=== PATIENT | female | born 1955 | race Caucasian/White ===

== ENCOUNTER 2023-10-02 05:55 | Day surgery (SDC) | payer MEDICARE, MEDICAID ==
[2023-10-02] VITALS (13 sets, daily range): BP systolic 130–179; BP diastolic 77–114; PULSE 75–89; RESP 13–17; TEMP 96.8; O2SAT 94–99
[~2023-10-02] VITALS: Ht 162.6 cm; Wt 115.7 kg
[2023-10-02] MEDS: tranexamic acid inj. 1,000 MG in normal saline IV soln 100ML IV ONE (05:50)
[2023-10-02] MEDS: cefazolin 2gm/D5W 100mL 100 ML IV ONE (05:50)
[~2023-10-02 05:55] MED LIST: LISI10TA27 PO; ringers solution, lacted 1,000 ML IV SCH
[2023-10-02] MEDS: oxymetazoline 15 ML nasal spray NS ONE ×2 (06:25→15:36)
[2023-10-02] MEDS: famotidine 20mg tablet PO ONE (06:25)
[2023-10-02] MEDS ORDERED: LIDOcaine 1% W/epiNEPHrine 1:100,000 20ml vial ONE (06:47)
[2023-10-02] MEDS ORDERED: fentaNYL /PF 50mcg/ml 5ml ampule ONE (07:50)
[2023-10-02] MEDS ORDERED: sevoflurane 250ml liquid IH ONE (08:07)
[2023-10-02] MEDS ORDERED: sugammadex 200mg/2ml injection IV ONE (10:07)
[2023-10-02] MEDS ORDERED: fentaNYL/PF 50MCG/1 ML 2ML syringe IV PRN (10:35)
[2023-10-02] MEDS ORDERED: ondansetron/PF 4mg/2ml inj IV PRN (10:35)
[2023-10-02] MEDS ORDERED: meperidine/PF 25mg/ml syringe IV PRN (10:35)
[2023-10-02] MEDS ORDERED: HYDROmorphone/PF 0.2 MG/ML SYRINGE IV PRN (10:35)
[2023-10-02] MEDS ORDERED: ringers solution, lacted 1,000 ML IV SCH (10:35)
[2023-10-02] MEDS ORDERED: proCHLORperazine 10 MG/2 ml inj IV PRN (10:35)
[2023-10-02] MEDS: labetalol 20mg/4ml (5mg/ml) syringe IV PRN (10:43)
[2023-10-02] MEDS: mupirocin 2% nasal ointment 1gm UD NS ONE (11:16)
[2023-10-02] MEDS: salt irrigation nasal spray 45 ML SPRAY NS ONE (11:16)
[2023-10-02] MEDS: hydrALAZINE 20mg/ml inj. IV PRN (11:18)
[2023-10-02] MEDS: cocaine 4% topical solution 4ml bottle ONE (15:35)
[2023-10-02] MEDS: epiNEPHrine 1 mg/ml 30ml MDV ONE (15:35)
[2023-10-02] MEDS: mupirocin 2% ointment 22GM ONE (15:36)
[2023-10-02] MEDS: Thrombin (Bovine) 5,000 unit vial TP ONE (15:36)
== END 2023-10-02 12:11 | disposition home or self-care (01) ==
LOC: PAS 05:55
PROVIDERS: ATTEND Otolaryngology
DX: J34.2 Deviated nasal septum (principal); J34.3 Hypertrophy of nasal turbinates; J32.9 Chronic sinusitis, unspecified; I10 Essential (primary) hypertension; I25.10 Atherosclerotic heart disease of native coronary artery without angina pectoris; E66.9 Obesity, unspecified; G47.30 Sleep apnea, unspecified; F41.9 Anxiety disorder, unspecified; F32.A Depression, unspecified; F43.10 Post-traumatic stress disorder, unspecified; Z79.899 Other long term (current) drug therapy; Z90.89 Acquired absence of other organs; Z90.710 Acquired absence of both cervix and uterus; Z96.642 Presence of left artificial hip joint; Z98.891 History of uterine scar from previous surgery; Z98.890 Other specified postprocedural states; Z68.41 Body mass index [BMI] 40.0-44.9, adult; Z91.040 Latex allergy status
CPT/HCPCS: 30140; 30520; 31240; 31254; 31267; 61782; 82948; 93005; A4618; A6402; A7000; J0171; J0360; J0690; J1100; J2001; J2405; J2704; J2765; J3010; J3490; J7030; J7050; J7120; Z7506; Z7508; Z7512; Z7610; 88300; 88304; 88311; A6449; C9250

== ENCOUNTER 2023-11-13 06:03 | Day surgery (SDC) | payer MEDICARE, MEDICAID ==
[2023-11-13] VITALS (16 sets, daily range): BP systolic 153–195; BP diastolic 92–112; PULSE 76–89; RESP 11–18; TEMP 98.4; O2SAT 94–100
[~2023-11-13] VITALS: Ht 162.6 cm; Wt 116.0 kg
[2023-11-13] MEDS: cefazolin 2gm/D5W 100mL 100 ML IV ONE (06:09)
[2023-11-13] MEDS: tranexamic acid inj. 1,000 MG in normal saline IV soln 100ML IV ONE (06:09)
[2023-11-13] MEDS: famotidine 20mg tablet PO ONE (06:54)
[2023-11-13] MEDS: oxymetazoline 15 ML nasal spray NS ONE (06:54)
[2023-11-13] MEDS ORDERED: epiNEPHrine 1 mg/ml 30ml MDV ONE (06:59)
[2023-11-13] MEDS ORDERED: cocaine 4% topical solution 4ml bottle ONE (06:59)
[2023-11-13] MEDS ORDERED: methylPREDNISolone acetate 80mg/ml inj**IM only ONE (06:59)
[2023-11-13] MEDS ORDERED: mupirocin 2% ointment 22GM ONE (07:00)
[2023-11-13] MEDS ORDERED: LIDOcaine 1% w/EPI 1:100,000 inj. MDV 50 ML VIAL ONE (07:00)
[2023-11-13] MEDS ORDERED: oxymetazoline 15 ML nasal spray NS ONE (07:01)
[2023-11-13] MEDS ORDERED: Thrombin (Bovine) 5,000 unit vial TP ONE ×2 (07:01→10:10)
[2023-11-13] MEDS ORDERED: fentaNYL/PF 50MCG/1 ML 2ML syringe ONE (07:49)
[2023-11-13] MEDS ORDERED: midazolam 1 mg/ML 2ml injection ONE (07:49)
[2023-11-13] MEDS ORDERED: propofol inj 20 ML IV ONE (07:50)
[2023-11-13] MEDS ORDERED: ondansetron/PF 4mg/2ml inj ONE (07:50)
[2023-11-13] MEDS ORDERED: LIDOcaine 2% (20mg/ml) 5ml vial ONE (07:50)
[2023-11-13] MEDS ORDERED: dexamethasone sod phosphate 4mg/ml inj. ONE ×2 (07:50→09:35)
[2023-11-13] MEDS ORDERED: rocuronium 10mg/ml inj IV ONE (07:50)
[2023-11-13] MEDS ORDERED: acetaminophen 1,000mg/100ml IV 100 ML IV ONE (07:50)
[2023-11-13] MEDS ORDERED: ondansetron/PF 4mg/2ml inj IV PRN (07:55)
[2023-11-13] MEDS ORDERED: ringers solution, lacted 1,000 ML IV SCH (07:55)
[2023-11-13] MEDS ORDERED: sevoflurane 250ml liquid IH ONE (08:18)
[2023-11-13] MEDS ORDERED: labetalol 20mg/4ml (5mg/ml) syringe IV ONE (08:39)
[2023-11-13] MEDS ORDERED: ePHEDrine 50MG/ML INJ. ONE (09:12)
[2023-11-13] MEDS: morphine 4 MG/ML inj SYRINge IV PRN (10:42)
[2023-11-13] MEDS: labetalol 20mg/4ml (5mg/ml) syringe IV PRN (10:47)
[2023-11-13] MEDS ORDERED: salt irrigation nasal spray 45 ML SPRAY NS PRN (11:10)
[2023-11-13] MEDS: morphine 2 MG/ML inj. syringe IV PRN (11:12)
[2023-11-13] MEDS: hydrALAZINE 20mg/ml inj. IV PRN (11:20)
== END 2023-11-13 13:26 | disposition home or self-care (01) ==
LOC: PAS 06:03
PROVIDERS: ATTEND Otolaryngology
DX: J32.8 Other chronic sinusitis (principal); J33.9 Nasal polyp, unspecified; I10 Essential (primary) hypertension; E66.01 Morbid (severe) obesity due to excess calories; F43.10 Post-traumatic stress disorder, unspecified; F41.9 Anxiety disorder, unspecified; G47.30 Sleep apnea, unspecified; I25.2 Old myocardial infarction; Z79.899 Other long term (current) drug therapy; Z90.710 Acquired absence of both cervix and uterus; Z90.89 Acquired absence of other organs; Z96.642 Presence of left artificial hip joint; Z98.891 History of uterine scar from previous surgery; Z98.890 Other specified postprocedural states; Z68.41 Body mass index [BMI] 40.0-44.9, adult; Z88.8 Allergy status to other drugs, medicaments and biological substances
CPT/HCPCS: 31259; 31276; 61782; 82948; 87070; 87075; 87102; A4618; A6402; A7000; C1726; J0131; J0171; J0360; J0690; J1100; J2001; J2250; J2270; J2405; J2704; J3010; J3490; J7030; J7040; J7120; Z7506; Z7508; Z7512; Z7610; A6449; J1010